=== PATIENT | female | born 1985 | race American Indian/Alaskan Native ===

== ENCOUNTER 2016-11-07 09:56 | Emergency (ER) | payer OTHER ==
[2016-11-07 10:45] LABS: Basophils % (Auto) 0.1 % (0.0-1.8); Eosinophils % (Auto) 1.3 % (0.0-4.3); Hematocrit 38.9 % (30.3-42.9); Hemoglobin 12.8 gm/dl (10.1-14.3); Mean Corpuscular HGB Conc 33 % (30-34); Mean Corpuscular Hemoglobin 28 pg (28-32); Mean Corpuscular Volume 84 fl (79-97); Platelet Count 265 K/mm3 (140-440); Red Blood Count 4.62 M/mm3 (3.65-5.03); White Blood Count 8.4 K/mm3 (4.5-11.0)
[2016-11-07 10:53] LABS: INR 1.02 (0.87-1.13)
[2016-11-07 10:54] LABS: Partial Thromboplastin Time 23.4 Sec. (24.2-36.6)
--- NOTE | 2016-11-07 10:54 | Emergency Department Report ---
ED HPI - General Chief complaint: Vaginal Bleeding Stated complaint: ABDOMINAL PAIN Time Seen by Provider: 11/07/16 10:32 Source: patient, EMS Mode of arrival: Stretcher Limitations: No Limitations - History of Present Illness MD Complaint: vaginal bleeding Onset/Timin -: Gradual, days(s) Radiation: none Severity scale (0 -10): 0 Improves with: none Worsens with: none Associated symptoms: vaginal bleeding. denies: nausea/vomiting, vaginal discharge, abdominal pain, dysuria, headache, vision changes, malaise, dysparuenia, rash, seizure, shortness of breath, syncope, weakness Vaginal bleeding: light :: Yes Number of weeks : 14 OB History - Current : no complications OB History - Previous Pregnancies: no complications Last menstrual period: 07/14/16 Pre-jonathon care: followed by OB - Related Data : 2 Para: 0 Ab: 1 Home Medications Medication Instructions Recorded Confirmed Last Taken Tablet 1 tab PO DAILY 11/07/16 11/07/16 11/06/16 Allergies Allergy/AdvReac Type Severity Reaction Status Date / Time No Known Allergies Allergy Unverified 11/07/16 10:13 ED Review of Systems ROS: Stated complaint: ABDOMINAL PAIN Other details as noted in HPI Constitutional: denies: chills, fever Eyes: denies: eye pain, eye discharge, vision change ENT: denies: ear pain, throat pain Respiratory: denies: cough, shortness of breath, wheezing Cardiovascular: denies: chest pain, palpitations Endocrine: no symptoms reported Gastrointestinal: denies: abdominal pain, nausea, diarrhea Genitourinary: denies: urgency, dysuria, discharge Musculoskeletal: denies: back pain, joint swelling, arthralgia Skin: denies: rash, lesions Neurological: denies: headache, weakness, paresthesias Psychiatric: denies: anxiety, depression Hematological/Lymphatic: denies: easy bleeding, easy bruising ED Past Medical Hx - Past Medical History Previous Medical History?: No - Surgical History Additional Surgical History: at 18 years old - Social History Smoking Status: Never Smoker Substance Use Type: None - Medications Home Medications: Home Medications Medication Instructions Recorded Confirmed Last Taken Type Tablet 1 tab PO DAILY 11/07/16 11/07/16 11/06/16 History ED Physical Exam - General Limitations: No Limitations General appearance: alert, in no apparent distress - Head Head exam: Present: atraumatic, normocephalic - Eye Eye exam: Present: normal appearance - ENT ENT exam: Present: normal exam, normal orophraynx, mucous membranes moist - Neck Neck exam: Present: normal inspection - Respiratory Respiratory exam: Present: normal lung sounds bilaterally. Absent: respiratory distress - Cardiovascular Cardiovascular Exam: Present: regular rate, normal rhythm. Absent: systolic murmur, diastolic murmur, rubs, gallop - GI/Abdominal GI/Abdominal exam: Present: soft, normal bowel sounds. Absent: distended, tenderness, guarding, rebound - Rectal Rectal exam: Present: deferred - External exam: Present: normal external exam - Extremities Exam Extremities exam: Present: normal inspection - Back Exam Back exam: Present: normal inspection - Neurological Exam Neurological exam: Present: alert, oriented X3 - Psychiatric Psychiatric exam: Present: normal affect, normal mood - Skin Skin exam: Present: warm, dry, intact, normal color. Absent: rash ED Course Vital Signs 11/07/16 10:00 Temperature 98.7 F Pulse Rate 77 Respiratory 18 Rate Blood Pressure 107/66 O2 Sat by Pulse 100 Oximetry ED Medical Decision Making - Lab Data Result diagrams: 11/07/16 10:28 11/07/16 10:28 - Radiology Data Radiology results: report reviewed, image reviewed - Medical Decision Making patient doing well here in the ER, no acitve bleeding and normal IUP at 14 weeks , will dc with clear instructionsto keep rest , will dc and follow up. Critical care attestation.: If time is entered above; I have spent that time in minutes in the direct care of this critically ill patient, excluding procedure time. ED Disposition Clinical Impression: Threatened Disposition: DISCHARGED TO HOME OR SELFCARE Is pt being admited?: No Does the pt Need Aspirin: No Condition: Good Instructions: Threatened Miscarriage (ED) Time of Disposition: 12:25
[2016-11-07 10:58] LABS: Anion Gap 17 mmol/L; Blood Urea Nitrogen 11 mg/dL (7-17); Calcium 8.6 mg/dL (8.4-10.2); Carbon Dioxide 21 mmol/L (22-30); Chloride 102.5 mmol/L (98-107); Glucose 94 mg/dL (65-100); Potassium 3.9 mmol/L (3.6-5.0); Sodium 137 mmol/L (137-145)
--- NOTE | 2016-11-07 11:55 | Ultrasound Report ---
OB sonogram: History: Vaginal bleeding. Findings: Uterus measures 11.6 x 8.6 x 8.4 cm. Single intrauterine gestation is noted. CRL of the fetus is 7.38 cm corresponding to 13 weeks and 3 days of gestation. Ultrasound age is 13 weeks and 5 days. Biparietal diameter 2.4 cm corresponding to 14 weeks of gestation. Femur length measurement 1.3 cm corresponding to 13 weeks and 5 days of gestation. heart rate 156 per minute. Right ovary 2.4 x 1.5 x 2.1 cm. No mass. Left ovary 3.7 x 1.8 x 2.2 cm. No mass. Impression: Single viable intrauterine gestation.
[2016-11-07 12:41] VITALS: BP 114/70
== END 2016-11-07 13:18 | disposition home or self-care (01) ==
LOC: ED 09:56
DX: O20.0 Threatened abortion (principal); Z3A.14 14 weeks gestation of pregnancy
CPT/HCPCS: 36415; 76801; 80048; 84702; 85025; 85610; 85730; 86850; 86900; 86901